=== PATIENT | female | born 1940 | race Caucasian/White ===

== ENCOUNTER → 2016-12-08 | Outpatient (CLI) | payer MEDICARE, OTHER | LOC: RAD 14:33 | PROVIDERS: ATTEND Nurse Practitioner | DX: Z12.31 Encounter for screening mammogram for malignant neoplasm of breast (principal) | CPT/HCPCS: 77063; G0202; 77067 ==

== ENCOUNTER 2016-12-23 08:23 | Day surgery (SDC) | payer MEDICARE, OTHER ==
--- NOTE | 2016-12-17 19:48 | HISTORY AND PHYSICAL E ---
History and Physical NAME: RODERICK MERCADO : 1940 AGE: 76Y ADMITTED: 12/23/2016 ROOM: CHIEF COMPLAINT: Colon screening. HISTORY OF PRESENT ILLNESS: The patient presented to us referred by primary care, Ms. Kaitlyn Cid, YANELI, a 76-year-old female for colon screening. She does have diarrhea and abdominal pain. SOCIAL HISTORY: The patient does not smoke, does not drink. PAST SURGICAL HISTORY: She did have hysterectomy, hip surgery, cholecystectomy. REVIEW OF SYSTEMS: CARDIAC: Hypertension, high cholesterol. RESPIRATORY: Sleep apnea, CPAP. HEAD, EYES, EARS, NOSE AND THROAT: Cataract, eye glasses. ENDOCRINE: Hypothyroidism. GASTROINTESTINAL: Colon screening, abdominal pain, diarrhea. ONCOLOGY/HEMATOLOGY: Anemia. MUSCULOSKELETAL: Arthritis. FAMILY HISTORY: Her father had heart disease; mom has heart disease. PHYSICAL EXAMINATION: GENERAL: Pleasant, 76. VITAL SIGNS: Blood pressure 110/70, pulse 80, respirations 18, temperature is 98. HEAD, EYES, EARS, NOSE AND THROAT: Normal. NECK: Supple. LUNGS: Clear. ABDOMEN: Soft. NEUROLOGIC EXAM: Negative. PAST HISTORY: 1994 shows sigmoid diverticulosis. The patient did have hip x-ray that showed degenerative osteoarthritis of right hip. She did have upper GI, negative. CONCLUSION: Colon screening. PLAN: Colonoscopy. DICTATING PHYSICIAN: JULIET VANN M.D. [id number] PHY#: [id number] ID: [id number] JOB#: [id number] ACCT: [id number] cc:[facility], JULIET HEARD M.D. >
[~2016-12-23 08:23] MED LIST: EPINEPHRINE INJ 1 MG/10 ML DISP.SYRIN ONE; FLUMAZENIL INJ 0.5 MG/5 ML VIAL ONE; GLUCAGON,HUMAN RECOMB 1 MG INJ ONE; GLYCOPYRROLATE INJ 0.4 MG/2 ML VIAL ONE; LIDOCAINE 2% JELLY 30 ML TUBE ONE; NALOXONE HCL INJ/PF 0.4 MG/1 ML SDV ONE; ONDANSETRON HCL INJ/PF 4 MG/2 ML SDV ONE
[2016-12-23] MEDS: MIDAZOLAM 2 MG/2 ML INJ ONE ×2 (09:28→09:33)
[2016-12-23] MEDS: FENTANYL CITRATE INJ/PF 100 MCG/2 ML AMPUL ONE ×2 (09:31→09:40)
[2016-12-23] MEDS ORDERED: SIMETHICONE 80 MG TAB.CHEW ONE (10:21)
[2016-12-23 10:52] VITALS: BP 114/62
--- NOTE | 2016-12-23 11:16 | OPERATIVE REPORT E ---
Operative Report NAME: RODERICK MERCADO : 1940 AGE: 76Y DATE OF SURGERY: 12/23/2016 ROOM: PREOPERATIVE DIAGNOSIS: A 76-year-old, diarrhea, abdominal pain, diverticulosis. POSTOPERATIVE DIAGNOSIS: A 76-year-old, diarrhea, abdominal pain, diverticulosis. OPERATION: Colonoscopy. SURGEON: JULIET VANN M.D. ANESTHESIA: Versed 3; fentanyl 100. TISSUE REMOVED OR ALTERED: Biopsy of right colon, probable microscopic collagenous colitis. DESCRIPTION: Rectal exam: Normal. Sigmoid: Diverticulosis. Descending colon: Diverticulosis. Ascending colon: Normal. Cecum: Normal. The scope withdrawn. Cecum, ascending, transverse, descending, sigmoid all the way to the rectum. CONCLUSION: 1. Diverticulosis, sigmoid and descending colon. 2. No evidence of polyps. 3. No evidence of malignancy. PLAN: 1. Soft diet. 2. Hold aspirin. 3. Consider followup colonoscopy in 10 years. DICTATING PHYSICIAN: JULIET VANN M.D. [id number] PHY#: [id number] ID: [id number] JOB#: [id number] ACCT: [id number] cc:JAME FLANNERY, JULIET Werner >
--- NOTE | 2016-12-23 11:17 | DISCHARGE SUMMARY E ---
Discharge Summary NAME: RODERICK MERCADO : 1940 AGE: 76Y ADMITTED: 12/23/2016 DISCHARGED: 12/23/2016 HOSPITAL COURSE: The patient is a 76-year-old female who underwent colon screening showing no evidence of polyps. No evidence of malignancy. She has sigmoid descending colon diverticulosis. DISCHARGE PLAN: Soft diet. Hold aspirin. Consider followup colonoscopy 10 years. DICTATING PHYSICIAN: JULIET VANN M.D. [id number] PHY#: [id number] ID: [id number] JOB#: [id number] ACCT: [id number] cc:JULIET VANN M.D. >
== END 2016-12-23 11:00 | disposition home or self-care (01) ==
LOC: END 08:23
PROVIDERS: ATTEND Specialist
PROC: 0DBF8ZX Excision of Right Large Intestine, Via Natural or Artificial Opening Endoscopic, Diagnostic (ICD-10-PCS; principal; 2016-12-23 09:00)
DX: K62.89 Other specified diseases of anus and rectum (principal); K57.30 Diverticulosis of large intestine without perforation or abscess without bleeding; I10 Essential (primary) hypertension; E78.00 Pure hypercholesterolemia, unspecified; D64.9 Anemia, unspecified; M19.90 Unspecified osteoarthritis, unspecified site; E03.9 Hypothyroidism, unspecified; G47.30 Sleep apnea, unspecified
CPT/HCPCS: 45380; 88305 ×2; J2250; J3010; J1610; A9270; J2405; J0171; J2310; J3490

== ENCOUNTER → 2018-01-04 | Outpatient (CLI) | payer MEDICARE, OTHER ==
--- NOTE | 2018-01-04 13:02 | WOMENS IMAGING REPORT ---
EXAM DESCRIPTION: BONE DENSITY HIP/SPINE COMPLETED DATE/TIME: 01/04/2018 8:20 am REASON FOR STUDY: SCREENING FOR OSTEOPOROSIS Z12.31 ENCNTR SCREEN MAMMOGRAM FOR MALIGNANT NEOPLASM OF DAVIDE M89.9 DISORDER OF BONE, UNSPECIFIED COMPARISON: None. TECHNIQUE: Dual-Energy X-ray Absorptiometry (DEXA) of the AP Spine and Forearm. LIMITATIONS: None. FINDINGS: LUMBAR SPINE: The bone mineral density (BMD) measured from L1-L4 in the AP projection correlates with a T-score of +0.5, which is normal as defined by the World Health Organization. FOREARM: The bone mineral density (BMD) measured in the total distal left forearm correlates with a T-score of -1.6 which is osteopenic as defined by the World Health Organization. IMPRESSION: 1. LUMBAR SPINE: Normal 2. FOREARM: Osteopenic COMMENT: The World Health Organization defines low BMD as follows: T-score: Normal: Greater than -1.0 Osteopenia: Between -1.0 and -2.5 Osteoporosis: Less than -2.5 without fractures Established osteoporosis: Less than -2.5 with fractures In general, you may wish to consider: Diagnosis Treatment Follow-up DEXA Normal BMD Prevention 2-3 years Osteopenia Prevention/Therapy 1-2 years Osteoporosis Therapy Yearly TECHNICAL DOCUMENTATION: JOB ID: [id number] [employer]- All Rights Reserved Reading location - IP/workstation name: [facility]-[email or web address]
--- NOTE | 2018-01-04 14:14 | WOMENS IMAGING REPORT ---
EXAM DESCRIPTION: 3D SCREENING MAMMO BILAT COMPLETED DATE/TIME: 01/04/2018 7:53 am REASON FOR STUDY: BILATERAL SCREENING MAMMO Z12.31 ENCNTR SCREEN MAMMOGRAM FOR MALIGNANT NEOPLASM O F DAVIDE M89.9 DISORDER OF BONE, UNSPECIFIED COMPARISON: 2016 TECHNIQUE: Standard craniocaudal and mediolateral oblique views of each breast recorded using digita l acquisition and breast tomosynthesis. LIMITATIONS: None. FINDINGS: Findings present which are benign by mammographic criteria. No suspicious masses, calcifi cations or architectural distortion. Pertinent benign findings: Stable benign fat necrosis left breast retroareolar region 4 cm from the n ipple Read with the assistance of CAD. .[facility] - R2 Cenova Version 1.3 .[facility] Imaging - R2 Cenova Version 1.3 .[facility] Imaging - R2 Cenova Version 2.4 .[facility] [place] R2 Cenova Version 2.4 .[facility] - R2 [employer] Version 9.2 Benign mammographic findings may include one or more of the following: Smooth masses, popcorn/rim/co arse calcifications, asymmetries, post-procedure changes, and lesions with long-standing stability. IMPRESSION: BENIGN MAMMOGRAPHIC FINDINGS. BIRADS 2 BREAST DENSITY: b. There are scattered areas of fibroglandular density. BIRAD: 2 BENIGN FINDING(S) RECOMMENDATION: RECOMMENDATION: ROUTINE SCREENING Please continue yearly bilateral screening mammography/tomosynthesis in December 2018 COMMENT: The patient has been notified of the results by letter per SA requirements. Additional no tification policies are in place for contacting patient with suspicious or incomplete findings. Quality ID #225: The [employer] recommends an annual screening mammogram for women aged 40 years or over. This facility utilizes a reminder system to ensure that all patients receive reminder letters, and/or direct phone calls for appointments. This includes reminders for routine scr eening mammograms, diagnostic mammograms, or other Breast Imaging Interventions when appropriate. Th is patient will be placed in the appropriate reminder system. The [employer] (ACR) has developed recommendations for screening MRI of the breast s in certain patient populations, to be used in conjunction with mammography. Breast MRI surveillanc e may be appropriate for women with more than 20% lifetime risk of developing breast cancer as deter mined by genetic testing, significant family history of the disease, or history of mantle radiation f or Hodgkins Disease. ACR Practice Guidelines 2008. DBT Technology DBT is a type of tomographic mammography. With conventional mammography, overlapping breast tissue ma y make lesions difficult to detect, even with good compression. DBT uses an x-ray tube that rotates a round the breast, taking images at different angles. These images are then combined to create thin sl ices of the breast that the radiologist can view as a 3D reconstruction. The Hologic unit can perform full-field digital mammograms (2D imaging); or DBT (3D imaging); or both, in a combination mode that quickly performs both the mammogram and the tomosynthesis scan while the breast is still compressed. PQRS 6045F: Fluoroscopic imaging is not utilized for breast tomosynthesis. TECHNICAL DOCUMENTATION: FINDING NUMBER: (1) ASSESSMENT: (1) JOB ID: [id number] [employer]- All Rights Reserved Reading location - IP/workstation name: [facility]-RR
== END ==
LOC: WI 07:13
PROVIDERS: ATTEND Nurse Practitioner
DX: Z12.31 Encounter for screening mammogram for malignant neoplasm of breast (principal); M89.9 Disorder of bone, unspecified
CPT/HCPCS: 77063; 77067; 77080

== ENCOUNTER 2018-02-17 20:02 | Emergency (ER) | payer MEDICARE, OTHER ==
--- NOTE | 2018-02-17 20:41 | RADIOLOGY REPORT (SQ) ---
EXAM DESCRIPTION: HIP RIGHT AP/LATERAL COMPLETED DATE/TIME: 02/17/2018 8:29 pm REASON FOR STUDY: Fall/pain/+deformity COMPARISON: None. NUMBER OF VIEWS: Two views. TECHNIQUE: AP pelvis and additional frog-leg view of the right hip. LIMITATIONS: None. FINDINGS: MINERALIZATION: Normal. RIGHT HIP: Status post right hip total arthroplasty. No fracture or dislocation. LEFT HIP: Status post left hip total arthroplasty. No fracture or dislocation. PUBIS AND ISCHIUM: No fracture. PELVIS: No fracture. SACRUM: No fracture or dislocation. No worrisome bone lesions. LOWER LUMBAR SPINE: No fracture or dislocation. No worrisome bone lesions. Status post lower lumbar posterior fusion. SOFT TISSUES: No findings. OTHER: No other significant finding. IMPRESSION: No fracture or dislocation of the right hip status post total arthroplasty. No evidence of perihardware fracture or loosening. TECHNICAL DOCUMENTATION: JOB ID: [id number] [employer]- All Rights Reserved Reading location - IP/workstation name: [email or web address]
[2018-02-17] MEDS ORDERED: LIDOCAINE 5% (700 MG) TRANSDERMAL ADH..PATCH TP ONE (21:09)
[2018-02-17] MEDS ORDERED: ACETAMINOPHEN 325 MG TABLET PO ONE (21:09)
[2018-02-17] MEDS ORDERED: KETOROLAC TROMETHAMINE INJ/PF 30 MG/1 ML SDV IV ONE (21:09)
--- NOTE | 2018-02-17 21:16 | ER Document Report ---
ED General - General Chief Complaint: Hip Pain Stated Complaint: HIP PAIN Time Seen by Provider: 02/17/18 20:08 Notes: Patient is a 77-year old female with a past medical history of bilateral hip replacements who presents with severe right hip pain that has been ongoing for the past several hours. The patient states that she fell 3 weeks ago and family at the bedside reports that she is been complaining of some pain since that time to her hip on the right side. The patient apparently did not seek medical evaluation at that time and has been able to bear weight. Today she was out shopping with her family, shortly thereafter began to have progressively worsening right hip pain which has progressed to the point that she can no longer bear weight. She does describe this as a severe, throbbing, constant pain into the right inguinal crease and right hip. Worsened by any attempt at movement of the hip or walking. She does live independently, normally does not have any gait dysfunction. She denies any new or recurrent trauma today. Denies fever or constitutional symptoms. She denies any focal weakness or numbness stating that her difficulty walking is entirely due to pain. Denies history of similar symptoms in the past. TRAVEL OUTSIDE OF THE [place] IN LAST 30 DAYS: No - Related Data Allergies/Adverse Reactions: Sulfa (Sulfonamide Antibiotics) Allergy (Mild, Verified 12/23/16 08:45) RASH ON FACE Past Medical History - General Information source: Patient, Relative - Social History Smoking Status: Never Smoker Frequency of alcohol use: None Drug Abuse: None Lives with: Alone Family History: Reviewed & Not Pertinent Patient has suicidal ideation: No Patient has homicidal ideation: No - Past Medical History Cardiac Medical History: Reports: Hx Hypercholesterolemia, Hx Hypertension Denies: Hx Coronary Artery Disease, Hx Heart Attack Pulmonary Medical History: Denies: Hx Asthma, Hx Bronchitis, Hx COPD, Hx Pneumonia Neurological Medical History: Denies: Hx Cerebrovascular Accident, Hx Seizures Renal/ Medical History: Denies: Hx Peritoneal Dialysis GI Medical History: Denies: Hx Hepatitis, Hx Hiatal Hernia, Hx Ulcer Musculoskeletal Medical History: Reports Hx Arthritis Psychiatric Medical History: Comment Only: Hx Depression - anxiety Infectious Medical History: Denies: Hx Hepatitis Past Surgical History: Reports: Hx Genitourinary Surgery - bladder, Hx Orthopedic Surgery - right hip replacement. Denies: Hx Hysterectomy, Hx Mastectomy, Hx Open Heart Surgery, Hx Pacemaker - Immunizations Hx Diphtheria, Pertussis, Tetanus Vaccination: Yes Review of Systems - Review of Systems Notes: Constitutional: Negative for fever. HENT: Negative for sore throat. Eyes: Negative for visual changes. Cardiovascular: Negative for chest pain. Respiratory: Negative for shortness of breath. Gastrointestinal: Negative for abdominal pain, vomiting or diarrhea. Genitourinary: Negative for dysuria. Musculoskeletal: Positive for right hip pain Skin: Negative for rash. Neurological: Negative for headaches, weakness or numbness. 10 point ROS negative except as marked above and in HPI. Physical Exam - Vital signs Vitals: Resp Pulse Ox 19 94 02/17/18 20:08 02/17/18 20:08 Interpretation: Normal Notes: PHYSICAL EXAMINATION: GENERAL: Appears moderately uncomfortable but in no acute distress HEAD: Atraumatic, normocephalic. EYES: Pupils equal round and reactive to light, extraocular movements intact, sclera anicteric, conjunctiva are normal. ENT: nares patent, oropharynx clear without exudates. Moist mucous membranes. NECK: Normal range of motion, supple without lymphadenopathy LUNGS: Breath sounds clear to auscultation bilaterally and equal. No wheezes rales or rhonchi. HEART: Regular rate and rhythm without murmurs, 2+ DP pulses bilaterally ABDOMEN: Soft, nontender, normoactive bowel sounds. No guarding, no rebound. No masses appreciated. EXTREMITIES: Pain with axial loading and internal as well as external rotation of the right hip. No leg shortening. Full flexion extension of the right knee. There is no visible deformity or swelling of the right hip joint. The examination is otherwise unremarkable. Back: No midline spinal tenderness, step-offs or deformities NEUROLOGICAL: 5 out of 5 dorsi and plantar flexion bilaterally. PSYCH: Normal mood, normal affect. SKIN: Warm, Dry, normal turgor, no visible erythema or induration around the skin and soft tissues of the right hip and low back Course - Re-evaluation Re-evalutation: 02/17/18 21:14 Patient presents with isolated right hip pain of unclear etiology. X-ray without evidence of an acute fracture or prosthetic dislocation. No acute trauma to the area today although the patient did have a fall 3 weeks ago. There is no visible trauma, erythema or deformity to the hip. Will proceed with a CT of the hip and pelvis to evaluate for any evidence of an occult fracture given that the patient is currently in significant pain and completely unable to ambulate. 02/17/18 22:46 CT likewise unremarkable. The patient continues to have significant pain to the right hip with any attempt at movement although is comfortable when lying flat in the bed. I have discussed briefly with the hospitalist Dr. Jade who confirms that this patient does not meet admission criteria. The patient will therefore remain in the emergency department and discharge planning will be consulted in the morning to assist with long-term planning for this patient. Family understands, agreeable with this plan. - Vital Signs Vital signs: Temp Pulse Resp BP Pulse Ox 98.3 F 15 162/80 H 95 02/17/18 20:13 02/17/18 22:01 02/17/18 22:01 02/17/18 22:01 - Diagnostic Test Radiology reviewed: Image reviewed, Reports reviewed Radiology results interpreted by me: 02/17/18 22:46 Hip x-ray: No acute fracture or hardware displacement Discharge - Discharge Clinical Impression: Right hip pain, Unable to ambulate Condition: Fair Referrals: JAME FLANNERY NP [Primary Care Provider] - Follow up as needed
[2018-02-17] MEDS: MORPHINE SULFATE 10 MG/ML INJ IV PRN (21:24)
--- NOTE | 2018-02-17 22:08 | RADIOLOGY REPORT (SQ) ---
CT PELVIS WITHOUT IV CONTRAST HISTORY: Right hip and pelvic pain. COMPARISON: Radiographs from earlier the same day. TECHNIQUE: CT scan of the pelvis without IV contrast. This exam was performed according to our departmental dose-optimization program, which includes automated exposure control, adjustment of the mA and/or kV according to patient size and/or use of iterative reconstruction technique. FINDINGS: Status post bilateral total hip arthroplasties without evidence of periprosthetic fracture or hardware loosening. Partially visualized is prior lower lumbar interbody and posterior spinal fusion. There is a chronic deformity of the right ilium. No acute fractures seen. Visualized pelvic structures are grossly unremarkable. Small ventral hernia is seen. IMPRESSION: Status post bilateral total hip arthroplasties. No evidence of periprosthetic fracture or hardware loosening.
[2018-02-17] MEDS ORDERED: METOCLOPRAMIDE HCL INJ/PF 10 MG/2 ML SDV IV ONE (22:56)
[2018-02-17 23:25] LABS: ABSOLUTE EOSINOPHILS # (AUTO) 0.1 10^3/uL (0.0-0.6); ABSOLUTE LYMPHOCYTES (AUTO) 1.2 10^3/uL (0.5-4.7); ABSOLUTE MONOCYTES (AUTO) 0.9 10^3/uL (0.1-1.4); ABSOLUTE NEUT (AUTO) 7.6 10^3/uL (1.7-8.2); BASOPHILS % (AUTO) 0.3 % (0-2); EOSINOPHILS % (AUTO) 0.9 % (0-6); HEMATOCRIT 35.3 % (36.0-47.0); HEMOGLOBIN 11.9 g/dL (12.0-15.5); LYMPHOCYTES % (AUTO) 12.3 % (13-45); MEAN CORPUSCULAR HEMOGLOBIN 28.3 pg (27.0-33.4); MEAN CORPUSCULAR HGB CONC 33.6 g/dL (32.0-36.0); MEAN CORPUSCULAR VOLUME 84 fl (80-97); MONOCYTES % (AUTO) 8.9 % (3-13); PLATELET COUNT 202 10^3/uL (150-450); RED BLOOD COUNT 4.19 10^6/uL (3.72-5.28); RED CELL DISTRIBUTION WIDTH 13.8 % (11.5-14.0); SEGMENTED NEUTROPHILS % (AUTO) 77.6 % (42-78); TOTAL CELLS COUNTED % (AUTO) 100 %; WHITE BLOOD COUNT 9.8 10^3/uL (4.0-10.5)
[2018-02-17 23:56] LABS: ANION GAP 8 (5-19); BLOOD UREA NITROGEN 21 mg/dL (7-20); CALCIUM 9.8 mg/dL (8.4-10.2); CARBON DIOXIDE 31 mmol/L (22-30); CHLORIDE 100 mmol/L (98-107); GLUCOSE 109 mg/dL (75-110); POTASSIUM 3.8 mmol/L (3.6-5.0); SODIUM 139.4 mmol/L (137-145)
[2018-02-18] MEDS ORDERED: DICYCLOMINE HCL 10 MG CAPSULE PO ONE (00:44)
[2018-02-18] MEDS ORDERED: DULOXETINE HCL 30 MG CAPSULE.DR PO ONE (01:15)
[2018-02-18] MEDS ORDERED: ATORVASTATIN CALCIUM 20 MG TABLET PO ONE (01:15)
[2018-02-18] MEDS ORDERED: ALPRAZOLAM 0.5 MG TABLET PO ONE (01:15)
[2018-02-18] MEDS: MORPHINE SULFATE 10 MG/ML INJ IV PRN ×2 (01:20→03:42)
[2018-02-18] MEDS ORDERED: HYOSCYAMINE SULFATE 0.125 MG TABLET PO ONE (03:24)
[2018-02-18] MEDS ORDERED: HYOSCYAMINE SULFATE 0.125 MG TABLET ONE (04:10)
[2018-02-18] MEDS ORDERED: LEVOTHYROXINE SODIUM 0.05 MG TABLET PO SCH (06:00)
[2018-02-18] MEDS: DICYCLOMINE HCL 10 MG CAPSULE PO SCH ×2 (10:00→14:00)
[2018-02-18] MEDS ORDERED: LOSARTAN POTASSIUM 50 MG TABLET PO SCH (10:00)
[2018-02-18] MEDS ORDERED: HYDROCHLOROTHIAZIDE 12.5 MG TABLET PO SCH (10:00)
--- NOTE | 2018-02-18 13:28 | RADIOLOGY REPORT (SQ) ---
EXAM DESCRIPTION: CHEST SINGLE VIEW COMPLETED DATE/TIME: 02/18/2018 1:19 pm REASON FOR STUDY: altered mental status COMPARISON: 03/10/2015 EXAM PARAMETERS: NUMBER OF VIEWS: One view. TECHNIQUE: Single frontal radiographic view of the chest acquired. RADIATION DOSE: NA LIMITATIONS: None. FINDINGS: LUNGS AND PLEURA: No opacities, masses or pneumothorax. No pleural effusion. MEDIASTINUM AND HILAR STRUCTURES: No masses. Contour normal. HEART AND VASCULAR STRUCTURES: Heart normal in size. Normal vasculature. BONES: No acute findings. HARDWARE: None in the chest. OTHER: No other significant finding. IMPRESSION: NO ACUTE RADIOGRAPHIC FINDING IN THE CHEST. TECHNICAL DOCUMENTATION: JOB ID: [id number] [employer]- All Rights Reserved Reading location - IP/workstation name: [email or web address]
[2018-02-18 13:36] LABS: ALANINE AMINOTRANSFERASE 902 U/L (9-52); ALBUMIN 4.2 g/dL (3.5-5.0); ALKALINE PHOSPHATASE 138 U/L (38-126); ANION GAP 9 (5-19); BILIRUBIN,DIRECT 0.2 mg/dL (0.0-0.4); BILIRUBIN,TOTAL 0.8 mg/dL (0.2-1.3); BLOOD UREA NITROGEN 22 mg/dL (7-20); CALCIUM 9.7 mg/dL (8.4-10.2); CARBON DIOXIDE 34 mmol/L (22-30); CHLORIDE 96 mmol/L (98-107); CREATINE KINASE 47 U/L (30-135); GLUCOSE 126 mg/dL (75-110); LIPASE 171.8 U/L (23-300); SODIUM 138.7 mmol/L (137-145); TOTAL PROTEIN 7.1 g/dL (6.3-8.2)
[2018-02-18 13:36] LABS: APPEARANCE,URINE SLIGHTLY-CLOUDY; BILIRUBIN,URINE NEGATIVE (NEGATIVE); COLOR,URINE AMBER; GLUCOSE, URINE NEGATIVE (NEGATIVE); KETONES,URINE NEGATIVE (NEGATIVE); LEUKOCYTE ESTERASE,URINE NEGATIVE (NEGATIVE); NITRITE,URINE NEGATIVE (NEGATIVE); PROTEIN,URINE 30 mg/dL (NEGATIVE); URINE SPECIFIC GRAVITY 1.025
[2018-02-18 13:43] LABS: ASPARTATE AMINO TRANSFERASE 1282 U/L (14-36)
[2018-02-18 13:46] LABS: CREATINE KINASE MB 1.19 ng/mL (<4.55)
[2018-02-18 13:48] LABS: TROPONIN I < 0.012 ng/mL
--- NOTE | 2018-02-18 13:51 | RADIOLOGY REPORT (SQ) ---
EXAM DESCRIPTION: CT HEAD WITHOUT COMPLETED DATE/TIME: 02/18/2018 1:21 pm REASON FOR STUDY: fall, hit head COMPARISON: None. TECHNIQUE: Axial images acquired through the brain without intravenous contrast. Images reviewed wi th bone, brain and subdural windows. Additional sagittal and coronal reconstructions were generated. Images stored on PACS. All CT scanners at this facility use dose modulation, iterative reconstruction, and/or weight based d osing when appropriate to reduce radiation dose to as low as reasonably achievable (ALARA). [facility]: Dose Right [facility]: CareDose [facility]: Dose Right [facility]: Teradose 4D [facility]: Smart Standard [employer] RADIATION DOSE: CT Rad equipment meets quality standard of care and radiation dose reduction techniq ues were employed. CTDIvol: 53.2 mGy. DLP: 1044 mGy-cm.mGy. LIMITATIONS: None. FINDINGS: VENTRICLES: Prominent. CEREBRUM: No masses. No hemorrhage. No midline shift. Areas of low density in the white matter mos t likely due to chronic micro-vascular ischemic change. No evidence for acute infarction. CEREBELLUM: No masses. No hemorrhage. No alteration of density. No evidence for acute infarction. EXTRAAXIAL SPACES: Age-related involutional change. No fluid collections. No masses. ORBITS AND GLOBE: No intra- or extraconal masses. Normal contour of globe without masses. CALVARIUM: No fracture. PARANASAL SINUSES: Fluid in the ethmoid sinuses. SOFT TISSUES: No mass or hematoma. OTHER: No other significant finding. IMPRESSION: CHRONIC CHANGES OF ATROPHY AND MICROVASCULAR ISCHEMIA. NO ACUTE PROCESS. EVIDENCE OF ACUTE STROKE: NO. TECHNICAL DOCUMENTATION: JOB ID: [id number] Quality ID # [id number]: Final reports with documentation of one or more dose reduction techniques (e.g., Au tomated exposure control, adjustment of the mA and/or kV according to patient size, use of iterative reconstruction technique) 2010 [employer]- All Rights Reserved Reading location - IP/workstation name: [email or web address]
--- NOTE | 2018-02-18 15:08 | RADIOLOGY REPORT (SQ) ---
EXAM DESCRIPTION: U/S ABDOMEN LTD W/DOPPLER COMPLETED DATE/TIME: 02/18/2018 2:56 pm REASON FOR STUDY: elevated LFTs, epigastric pain COMPARISON: None. TECHNIQUE: Dynamic and static grayscale images acquired of the abdomen and recorded on PACS. Additio nal selected color Doppler and spectral images recorded. LIMITATIONS: None. FINDINGS: PANCREAS: No masses. Visualized pancreatic duct normal caliber. LIVER: No masses. Echotexture normal. LIVER VASCULATURE: Normal directional flow of the main portal vein and hepatic veins. GALLBLADDER: Surgically absent. ULTRASOUND-DETECTED GALLEGO'S SIGN: Negative. INTRAHEPATIC DUCTS AND COMMON DUCT: Dilated intrahepatic ducts. Common duct is 1.9 cm. INFERIOR VENA CAVA: Normal flow. AORTA: No aneurysm. RIGHT KIDNEY: Normal size. Normal echogenicity. No solid or suspicious masses. No hydronephrosis. No calcifications. PERITONEAL AND RIGHT PLEURAL SPACE: No ascites or effusions. OTHER: No other significant findings. IMPRESSION: Dilated common bile duct at 1.9 cm with dilated intrahepatic ducts. Worrisome for commo n bile duct obstruction. Cholecystectomy. TECHNICAL DOCUMENTATION: JOB ID: [id number] [employer]- All Rights Reserved Reading location - IP/workstation name: [email or web address]
[2018-02-18 19:16] VITALS: BP 131/55
[2018-02-18] MEDS ORDERED: DULOXETINE HCL 30 MG CAPSULE.DR PO SCH (22:00)
[2018-02-18] MEDS ORDERED: ALPRAZOLAM 0.5 MG TABLET PO SCH (22:00)
[2018-02-18] MEDS ORDERED: ATORVASTATIN CALCIUM 20 MG TABLET PO SCH (22:00)
[2018-02-18] MEDS ORDERED: (PENDING PHARMACY ID) (Mirabegron [Myrbetriq] 25 MG) PO SCH (22:00)
--- NOTE | 2018-02-18 22:21 | EKG REPORT ---
SEVERITY:- ABNORMAL ECG - SINUS RHYTHM PROBABLE LEFT ATRIAL ABNORMALITY PROBABLE INFERIOR INFARCT, AGE INDETERMINATE : Confirmed by: Soniya Jones 18-Feb-2018 22:21:03
== END 2018-02-18 18:40 | disposition short-term general hospital (02) ==
LOC: ER 20:02
DX: M25.551 Pain in right hip (principal); W19.XXXA Unspecified fall, initial encounter; K83.1 Obstruction of bile duct; Z96.643 Presence of artificial hip joint, bilateral; R26.2 Difficulty in walking, not elsewhere classified; I10 Essential (primary) hypertension; R41.0 Disorientation, unspecified; R10.13 Epigastric pain; Z90.49 Acquired absence of other specified parts of digestive tract; Z88.2 Allergy status to sulfonamides
CPT/HCPCS: 93005; 94640; 99285; 96374; 96375; 36415; 87086; 82553; 82140; 82550; 83605; 83690; 85025; 80048; 80053; 81001; 84484; 71045; 73502; 76705; 93976; 70450; 72192; 93010; A9270 ×6; J1885; J2765; J2270 ×2; G8978; G8979; G8980; J3490

== ENCOUNTER → 2019-01-07 | Outpatient (CLI) | payer MEDICARE, OTHER ==
--- NOTE | 2019-01-07 16:13 | WOMENS IMAGING REPORT ---
EXAM DESCRIPTION: 3D SCREENING MAMMO BILAT COMPLETED DATE/TIME: 01/07/2019 11:28 am REASON FOR STUDY: Z12.31 ENCOUNTER FOR SCREENING MAMMOGRAM FOR MALIGNANT NEOPLASM OF BREAST Z12.31 ENCNTR SCREEN MAMMOGRAM FOR MALIGNANT NEOPLASM OF DAVIDE COMPARISON: 2016, 2017 EXAM PARAMETERS: Standard craniocaudal and mediolateral oblique views of each breast recorded using digital acquisition and breast tomosynthesis. Read with the assistance of CAD. .[facility] - [employer] Version 9.2 LIMITATIONS: None. FINDINGS: Findings present which are benign by mammographic criteria. No suspicious masses, calcific ations or architectural distortion. Pertinent benign findings: Classic fat necrosis in the left breast. Smaller than previous. Benign mammographic findings may include one or more of the following: Smooth masses, popcorn/rim/coa rse calcifications, asymmetries, post-procedure changes, and lesions with long-standing stability. IMPRESSION: BENIGN MAMMOGRAPHIC FINDINGS. BIRADS 2 BREAST DENSITY: b. There are scattered areas of fibroglandular density. BIRAD: ASSESSMENT: 2 BENIGN FINDING(S) RECOMMENDATION: ROUTINE SCREENING COMMENT: The patient has been notified of the results by letter per SA requirements. Additional no tification policies are in place for contacting patient with suspicious or incomplete findings. Quality ID #225: The [employer] recommends an annual screening mammogram for women aged 40 years or over. This facility utilizes a reminder system to ensure that all patients receive reminder letters, and/or direct phone calls for appointments. This includes reminders for routine scr eening mammograms, diagnostic mammograms, or other Breast Imaging Interventions when appropriate. Th is patient will be placed in the appropriate reminder system. TECHNICAL DOCUMENTATION: FINDING NUMBER: (1) ASSESSMENT: (1) JOB ID: [id number] [employer]- All Rights Reserved Reading location - IP/workstation name: [email or web address]
== END ==
LOC: WI 10:56
PROVIDERS: ATTEND Nurse Practitioner
DX: Z12.31 Encounter for screening mammogram for malignant neoplasm of breast (principal)
CPT/HCPCS: 77063; 77067